=== PATIENT | female | born 1940 | race African-American/Black ===

== ENCOUNTER 2021-11-02 11:43 | Inpatient (IN) | payer OTHER, MEDICAID ==
[~2021-11-02] VITALS: Ht 144.8 cm; Wt 44.9 kg
[2021-11-02 12:34] LABS: BASOPHILS % 0.4 % (0.0-2.0); EOSINOPHILS % 0.8 % (0.0-5.0); HEMOGLOBIN. 12.3 g/dL (12.0-16.0); LYMPHOCYTES % 8.3 % (20.0-50.0); MEAN CORPUSCULAR HEMOGLOBIN 31.6 pg (28.0-32.0); MEAN PLATELET VOLUME 8.6 fl (7.4-10.4); MONOCYTES % 6.7 % (2.0-8.0); NEUTROPHILS % 83.8 % (40.0-76.0); PLATELET 294 x1000/uL (130-400); RED CELL DISTRIBUTION WIDTH 14.4 % (11.6-14.6)
[2021-11-02 12:41] LABS: CHLORIDE 108 mEq/L (98-107)
[2021-11-02 12:43] LABS: PROTHROMBIN TIME 10.5 sec (9.6-11.0)
[2021-11-02 12:52] LABS: C REACTIVE PROTEIN QUANT 6.9 mg/L (0.0-3.0); CREATINE KINASE 757 IU/L (26-192); ETHANOL BLOOD < 10 mg/dL
[2021-11-02 12:58] LABS: CLARITY URINE CLEAR (CLEAR); COLOR URINE YELLOW (YELLOW); KETONES URINE TRACE (NEGATIVE); LEUKOCYTE ESTERASE URINE NEGATIVE (NEGATIVE); NITRITE URINE NEGATIVE (NEGATIVE); OCCULT BLOOD URINE NEGATIVE (NEGATIVE); PROTEIN URINE 1+ (NEGATIVE); SPECIFIC GRAVITY URINE 1.022 (1.005-1.030)
[2021-11-02 13:08] LABS: *AMPHETAMINES SCREEN URINE NEGATIVE (NEGATIVE); *BARBITURATES SCREEN URINE NEGATIVE (NEGATIVE); *BENZODIAZEPINES SCREEN URINE NEGATIVE (NEGATIVE); *COCAINE SCREEN URINE NEGATIVE (NEGATIVE); CANNABINOID URINE SCREEN NEGATIVE (NEGATIVE); METHADONE URINE SCREEN NEGATIVE (NEGATIVE); OPIATES URINE SCREEN NEGATIVE (NEGATIVE); PHENCYCLIDINE URINE SCREEN NEGATIVE (NEGATIVE)
[2021-11-02] MEDS ORDERED: ASPIRIN 325MG EC TABLET PO NR (13:45)
[2021-11-02] MEDS ORDERED: ENOXAPARIN 30MG/0.3ML SYR SUBCUT NR (13:45)
[2021-11-02 14:52] LABS: BG BASE EXCESS 0.9 mmol/L (-2.0-2.0); BG CARBOXYHEMOGLOBIN 0.3 % (0.5-1.5); BG DEOXYHEMOGLOBIN 3.4 % (0.0-5.0); BG FRACTION INSPIRED OXYGEN 21; BG HCO3 ACT 24.6 mmol/L (22.0-26.0); BG METHEMOGLOBIN 0.1 % (0.0-1.5); BG OXYGEN SATURATION 96.6 % (92.0-98.5); BG OXYHEMOGLOBIN 96.2 % (94.0-97.0); BG PH 7.453 (7.350-7.450); BG PO2 88.5 mmHg (75.0-100.0); BG SAMPLE SITE RIGHT RADIAL; BG TOTAL HEMOGLOBIN 11.6 g/dL (12.0-18.0); BG VENT MODE ROOM AIR
[2021-11-02] MEDS: LOSARTAN POTASSIUM 25 MG TABLET PO SCH (14:53)
[2021-11-02] MEDS ORDERED: MAGNESIUM/ALUMINUM HYDROXIDE/SIMETHICONE 30ML UDC PO PRN (15:30)
[2021-11-02] MEDS ORDERED: HYDROCODONE/ACETAMINOPHEN 5/325MG TABLET PO PRN (15:30)
[2021-11-02] MEDS ORDERED: ACETAMINOPHEN 325MG TABLET PO PRN (15:30)
[2021-11-02] MEDS ORDERED: CLONIDINE 0.1MG TABLET PO PRN (15:30)
[2021-11-02] MEDS ORDERED: DOCUSATE SODIUM 100MG CAPSULE PO PRN (15:30)
[2021-11-02] MEDS ORDERED: ONDANSETRON HCL 4MG/2ML INJ IV PRN (15:30)
[2021-11-02 17:25] VITALS: BP 199/82
[2021-11-02 18:38] VITALS: BP 199/82
[2021-11-02 20:00] VITALS: BP 198/73
[2021-11-02] MEDS: AMLODIPINE 5MG TABLET PO SCH (20:16)
[2021-11-02] MEDS: SODIUM CHLORIDE 0.9% 1,000 ML IV SCH (20:22)
[2021-11-02 22:33] LABS: CREATINE KINASE 483 IU/L (26-192)
[2021-11-03] VITALS: BP 113/63
[2021-11-03 04:00] VITALS: BP 140/72
[2021-11-03] MEDS: OMEPRAZOLE 20MG CAPSULE EXTENDED RELEASE PO SCH (06:24)
[2021-11-03 07:54] LABS: BASOPHILS % 1.2 % (0.0-2.0); EOSINOPHILS % 3.4 % (0.0-5.0); HEMATOCRIT. 28.8 % (36.0-48.0); HEMOGLOBIN. 9.8 g/dL (12.0-16.0); LYMPHOCYTES % 16.3 % (20.0-50.0); MEAN CORPUSCULAR HEMOGLOBIN 32.2 pg (28.0-32.0); MEAN CORPUSCULAR VOLUME 94.9 fL (81.0-99.0); MEAN PLATELET VOLUME 8.5 fl (7.4-10.4); MONOCYTES % 10.7 % (2.0-8.0); NEUTROPHILS % 68.4 % (40.0-76.0); PLATELET 236 x1000/uL (130-400); RED BLOOD CELL COUNT 3.04 mill/uL (4.2-5.4); RED CELL DISTRIBUTION WIDTH 14.6 % (11.6-14.6)
[2021-11-03 08:00] VITALS: BP 161/71
[2021-11-03 08:14] LABS: CHLORIDE 113 mEq/L (98-107)
[2021-11-03 08:35] LABS: CREATINE KINASE 585 IU/L (26-192); HDL CHOLESTEROL 46 mg/dL (40-59); LDL CHOLESTEROL 48 mg/dL (5-100); PHOSPHORUS 2.6 mg/dL (2.5-4.9); T4 FREE 1.31 ng/dL (0.76-1.46); TOTAL IRON BINDING CAPACITY 178 ug/dL (250-450)
[2021-11-03] MEDS: AMLODIPINE 5MG TABLET PO SCH ×2 (09:15→21:00)
[2021-11-03] MEDS: LOSARTAN POTASSIUM 25 MG TABLET PO SCH (09:15)
[2021-11-03] MEDS: ASPIRIN 81MG TABLET PO SCH (09:15)
[2021-11-03 12:00] VITALS: BP 140/66
[2021-11-03] MEDS: SODIUM CHLORIDE 0.9% 1,000 ML IV SCH (13:00)
[2021-11-03] MEDS ORDERED: POTASSIUM CHLORIDE 20MEQ TABLET SR PO SCH (14:30)
[2021-11-03 16:00] VITALS: BP 147/66
[2021-11-03 17:46] LABS: BASOPHILS % 1.2 % (0.0-2.0); EOSINOPHILS % 3.4 % (0.0-5.0); HEMATOCRIT. 28.5 % (36.0-48.0); HEMOGLOBIN. 9.6 g/dL (12.0-16.0); LYMPHOCYTES % 19.8 % (20.0-50.0); MEAN CORPUSCULAR HEMOGLOBIN 32.8 pg (28.0-32.0); MEAN CORPUSCULAR VOLUME 97.3 fL (81.0-99.0); MEAN PLATELET VOLUME 8.7 fl (7.4-10.4); MONOCYTES % 9.6 % (2.0-8.0); PLATELET 206 x1000/uL (130-400); RED BLOOD CELL COUNT 2.93 mill/uL (4.2-5.4); RED CELL DISTRIBUTION WIDTH 14.3 % (11.6-14.6)
[2021-11-03 18:24] LABS: CREATINE KINASE 561 IU/L (26-192)
[2021-11-03 20:00] VITALS: BP 116/68
[2021-11-03] MEDS ORDERED: VERA120C3 PO (22:48)
[2021-11-03] MEDS ORDERED: ATOR10TA PO (22:48)
[2021-11-03] MEDS ORDERED: DORZ10DR9 EACHEYE (22:48)
[2021-11-03] MEDS ORDERED: BRIM.2 EACHEYE (22:48)
[2021-11-03] MEDS ORDERED: ASPI-986 PO (22:48)
[2021-11-03] MEDS ORDERED: XALAO EACHEYE (22:48)
[2021-11-03] MEDS ORDERED: TERA1CAP54 PO (22:48)
[2021-11-03] MEDS ORDERED: FERR325T6 PO (22:48)
[2021-11-03] MEDS ORDERED: ACET-2502 PO (22:48)
[2021-11-03] MEDS ORDERED: BENZ100C86 MT (22:48)
[2021-11-03] MEDS ORDERED: LISI20TA31 PO (22:48)
[2021-11-03] MEDS ORDERED: ALLO100T PO (22:48)
[2021-11-04] VITALS (7 sets, daily range): BP systolic 128–158; BP diastolic 56–73
[2021-11-04] MEDS: OMEPRAZOLE 20MG CAPSULE EXTENDED RELEASE PO SCH (06:30)
[2021-11-04] MEDS: SODIUM CHLORIDE 0.9% 1,000 ML IV SCH (06:31)
[2021-11-04 07:02] LABS: CHLORIDE 114 mEq/L (98-107)
[2021-11-04 07:10] LABS: BASOPHILS % 1.1 % (0.0-2.0); EOSINOPHILS % 4.3 % (0.0-5.0); HEMATOCRIT. 28.8 % (36.0-48.0); HEMOGLOBIN. 9.8 g/dL (12.0-16.0); LYMPHOCYTES % 20.8 % (20.0-50.0); MEAN CORPUSCULAR HEMOGLOBIN 32.5 pg (28.0-32.0); MEAN CORPUSCULAR VOLUME 95.5 fL (81.0-99.0); MEAN PLATELET VOLUME 8.7 fl (7.4-10.4); MONOCYTES % 10.5 % (2.0-8.0); NEUTROPHILS % 63.3 % (40.0-76.0); PLATELET 213 x1000/uL (130-400); RED BLOOD CELL COUNT 3.02 mill/uL (4.2-5.4); RED CELL DISTRIBUTION WIDTH 14.2 % (11.6-14.6)
[2021-11-04] MEDS: AMLODIPINE 5MG TABLET PO SCH ×2 (09:07→20:31)
[2021-11-04] MEDS: LOSARTAN POTASSIUM 25 MG TABLET PO SCH (09:07)
[2021-11-04] MEDS: ASPIRIN 81MG TABLET PO SCH (09:08)
[2021-11-04] MEDS ORDERED: MAGNESIUM OXIDE 400MG TABLET PO SCH (14:00)
[2021-11-04] MEDS ORDERED: NALOXONE HCL 0.4MG/ML VIAL IV PRN (18:30)
[2021-11-05] MEDS ORDERED: FAMOTIDINE 20MG TABLET PO SCH (09:00)
== END 2021-11-04 21:55 | disposition short-term general hospital (02) | DRG 74 ==
LOC: ER 12:29 → EDBEDREQTM 14:52 → EDBEDREQ 14:52 → 6WST 18:15
PROVIDERS: ADMIT Internal Medicine Nephrology; ATTEND Internal Medicine Nephrology
DX: G90.8 Other disorders of autonomic nervous system (principal); M62.82 Rhabdomyolysis; D64.9 Anemia, unspecified; E87.6 Hypokalemia; F03.90 Unspecified dementia, unspecified severity, without behavioral disturbance, psychotic disturbance, mood disturbance, and anxiety; Z60.2 Problems related to living alone; Z20.822 Contact with and (suspected) exposure to COVID-19; J44.9 Chronic obstructive pulmonary disease, unspecified; R26.89 Other abnormalities of gait and mobility; I10 Essential (primary) hypertension; I16.0 Hypertensive urgency; I45.10 Unspecified right bundle-branch block; Z86.73 Personal history of transient ischemic attack (TIA), and cerebral infarction without residual deficits; Z79.82 Long term (current) use of aspirin; Z82.49 Family history of ischemic heart disease and other diseases of the circulatory system
CPT/HCPCS: 36415; 36600; 70551; 71045; 80048; 80053; 80061; 80076; 80305; 80320; 81003; 82140; 82375; 82550; 82805; 83540; 83550; 83605; 83615; 83735; 83880; 84100; 84145; 84439; 84443; 84484; 85025; 86140; 87426; 93005; 93306; 93970; 97162; 97167; 97535; 99291; J1650; G0480

== ENCOUNTER 2022-01-30 15:20 | Inpatient (IN) | payer OTHER, MEDICAID ==
[~2022-01-30] VITALS: Ht 160 cm; Wt 56.7 kg
[~2022-01-30 15:20] MED LIST: ACET-2502 PO; ALLO100T PO; ASPI-986 PO; ATOR10TA PO; BENZ100C86 MT; BRIM.2 EACHEYE; DORZ10DR9 EACHEYE; FERR325T6 PO; LISI20TA31 PO; TERA1CAP54 PO; VERA120C3 PO; XALAO EACHEYE
[2022-01-30] MEDS ORDERED: SODIUM CHLORIDE 0.9% 1000ML BAG (SEPSIS BOLUS) IV ONE (16:00)
[2022-01-30] MEDS ORDERED: VANCOMYCIN 1G PREMIX 200 ML IV ONE (16:00)
[2022-01-30] MEDS ORDERED: PIPERACILLIN/TAZ 3.375G PREMIX 50 ML IV ONE (16:00)
[2022-01-30 19:31] LABS: CHLORIDE 97 mEq/L (98-107)
[2022-01-30 19:33] LABS: HEMATOCRIT. 30.6 % (36.0-48.0); HEMOGLOBIN. 10.1 g/dL (12.0-16.0); MEAN CORPUSCULAR HEMOGLOBIN 32.3 pg (28.0-32.0); MEAN CORPUSCULAR VOLUME 97.6 fL (81.0-99.0); MEAN PLATELET VOLUME 8.9 fl (7.4-10.4); PLATELET 474 x1000/uL (130-400); RED BLOOD CELL COUNT 3.13 mill/uL (4.2-5.4); RED CELL DISTRIBUTION WIDTH 14.2 % (11.6-14.6)
[2022-01-30] MEDS ORDERED: ALBUTEROL (0.083%) 2.5MG/3ML NEB HHN ONE (20:00)
[2022-01-30] MEDS ORDERED: SODIUM BICARBONATE 8.4% 1 MEQ/ML 50ML SYR IV ONE (20:00)
[2022-01-30] MEDS ORDERED: INSULIN REGULAR (HUMULIN R) 300UNITS/3ML VIAL IV ONE (20:00)
[2022-01-30] MEDS ORDERED: DEXTROSE 50% WATER 50ML SYRINGE IV ONE (20:00)
[2022-01-30] MEDS ORDERED: GUAIFENESIN 200MG/10ML SUGAR FREE UDC PO PRN (21:30)
[2022-01-30] MEDS ORDERED: DOCUSATE SODIUM 100MG CAPSULE PO PRN (21:30)
[2022-01-30] MEDS ORDERED: IPRATROPIUM/ALBUTEROL 0.5-3(2.5)MG/3ML NEB HHN PRN (21:30)
[2022-01-30] MEDS ORDERED: MAGNESIUM/ALUMINUM HYDROXIDE/SIMETHICONE 30ML UDC PO PRN (21:30)
[2022-01-30] MEDS ORDERED: ONDANSETRON HCL 4MG/2ML INJ IV PRN (21:30)
[2022-01-30] MEDS ORDERED: CLONIDINE 0.1MG TABLET PO PRN (21:30)
[2022-01-30] MEDS ORDERED: ACETAMINOPHEN 650MG SUPP PR PRN ×2 (21:30)
[2022-01-30] MEDS ORDERED: SODIUM BICARBONATE 8.4% 1 MEQ/ML 50ML SYR IV NR (21:45)
[2022-01-30] MEDS ORDERED: PIPERACILLIN/TAZ 3.375G PREMIX 50 ML IV NR (21:45)
[2022-01-30] MEDS ORDERED: DEXTROSE 50% WATER 50ML SYRINGE IV NR (21:45)
[2022-01-30] MEDS ORDERED: VANCOMYCIN 1G PREMIX 200 ML IV NR (21:45)
[2022-01-30] MEDS ORDERED: INSULIN REGULAR (HUMULIN R) 300UNITS/3ML VIAL IV NR (21:45)
[2022-01-30] MEDS ORDERED: VANCOMYCIN 500MG PREMIX 100 ML IV NR (23:00)
[2022-01-31] VITALS (45 sets, daily range): BP systolic 70–202; BP diastolic 25–159
[2022-01-31] MEDS: SODIUM CHLORIDE 0.9% 1,000 ML IV SCH ×3 (00:45→15:48)
[2022-01-31] MEDS ORDERED: NOREPINEPHRINE 8MG/250ML PMX 250 ML IV PRN (00:45)
[2022-01-31 01:07] LABS: PLATELET ESTIMATE INCREASED
[2022-01-31 05:59] LABS: HEMATOCRIT. 28.1 % (36.0-48.0); HEMOGLOBIN. 9.2 g/dL (12.0-16.0); MEAN CORPUSCULAR HEMOGLOBIN 31.9 pg (28.0-32.0); MEAN CORPUSCULAR VOLUME 97.3 fL (81.0-99.0); MEAN PLATELET VOLUME 8.4 fl (7.4-10.4); PLATELET 436 x1000/uL (130-400); RED BLOOD CELL COUNT 2.89 mill/uL (4.2-5.4); RED CELL DISTRIBUTION WIDTH 13.9 % (11.6-14.6)
[2022-01-31 06:07] LABS: CHLORIDE 104 mEq/L (98-107)
[2022-01-31 06:21] LABS: CREATINE KINASE 289 IU/L (26-192); HDL CHOLESTEROL 14 mg/dL (40-59); LDL CHOLESTEROL 33 mg/dL (5-100)
[2022-01-31] MEDS ORDERED: PIPERACILLIN/TAZOBACTAM 3.375 G in DEXTROSE 5% WATER 50 ML IV SCH ×4 (09:00)
[2022-01-31] MEDS ORDERED: TETANUS, DIPHTHERIA, PERTUSSIS VAC/PF 0.5ML (>10YR OLD) IM ONE (09:00)
[2022-01-31] MEDS ORDERED: DEXTROSE 50% WATER 50ML SYRINGE IV PRN (09:45)
[2022-01-31 10:51] LABS: PLATELET ESTIMATE SLIGHTLY INCREASED
[2022-01-31] MEDS: BLOOD SUGAR DIAGNOSTIC STRIP TEST SCH ×2 (11:23→16:30)
[2022-01-31] MEDS: MEROPENEM 500 MG in SODIUM CHLORIDE 0.9% 50 ML IV SCH ×2 (11:38→21:28)
[2022-01-31] MEDS: ENOXAPARIN 30MG/0.3ML SYR SUBCUT SCH (11:39)
[2022-01-31] MEDS: INSULIN LISPRO 100 UNITS/ML SUBCUT SCH ×2 (11:40→19:33)
[2022-01-31 12:52] LABS: CLARITY URINE CLOUDY (CLEAR); COLOR URINE DARK YELLOW (YELLOW); KETONES URINE NEGATIVE (NEGATIVE); LEUKOCYTE ESTERASE URINE 1+ (NEGATIVE); NITRITE URINE NEGATIVE (NEGATIVE); OCCULT BLOOD URINE 1+ (NEGATIVE); PROTEIN URINE TRACE (NEGATIVE)
[2022-01-31] MEDS: NOREPINEPHRINE 8 MG in DEXTROSE 5% WATER 250 ML IV PRN (13:11)
[2022-01-31] MEDS: MORPHINE SULFATE 2 MG/ML CPJ (NOT FOR IM USE) IV PRN (14:00)
[2022-01-31] MEDS ORDERED: NALOXONE HCL 0.4MG/ML VIAL IV PRN (16:00)
[2022-01-31 16:19] LABS: CREATINE KINASE 445 IU/L (26-192)
[2022-02-01] VITALS (77 sets, daily range): BP systolic 75–146; BP diastolic 36–100
[2022-02-01] MEDS: INSULIN LISPRO 100 UNITS/ML SUBCUT SCH ×5 (00:43→23:43)
[2022-02-01] MEDS: BLOOD SUGAR DIAGNOSTIC STRIP TEST SCH ×5 (00:44→23:49)
[2022-02-01] MEDS: SODIUM CHLORIDE 0.9% 1,000 ML IV SCH ×3 (00:44→21:09)
[2022-02-01] MEDS: NOREPINEPHRINE 8 MG in DEXTROSE 5% WATER 250 ML IV PRN ×2 (04:57→18:35)
[2022-02-01 05:30] LABS: HEMATOCRIT. 24.8 % (36.0-48.0); HEMOGLOBIN. 8.2 g/dL (12.0-16.0); MEAN CORPUSCULAR HEMOGLOBIN 31.9 pg (28.0-32.0); MEAN CORPUSCULAR VOLUME 96.7 fL (81.0-99.0); MEAN PLATELET VOLUME 8.7 fl (7.4-10.4); PLATELET 393 x1000/uL (130-400); RED BLOOD CELL COUNT 2.57 mill/uL (4.2-5.4); RED CELL DISTRIBUTION WIDTH 14.2 % (11.6-14.6)
[2022-02-01 06:33] LABS: PLATELET ESTIMATE NORMAL
[2022-02-01] MEDS: ENOXAPARIN 30MG/0.3ML SYR SUBCUT SCH (09:07)
[2022-02-01] MEDS: MEROPENEM 500 MG in SODIUM CHLORIDE 0.9% 50 ML IV SCH ×2 (09:07→21:00)
[2022-02-01] MEDS: MORPHINE SULFATE 2 MG/ML CPJ (NOT FOR IM USE) IV PRN ×2 (09:11→17:20)
[2022-02-01] MEDS ORDERED: VANCOMYCIN 500MG PREMIX 100 ML IV SCH (15:00)
[2022-02-02] VITALS (55 sets, daily range): BP systolic 104–163; BP diastolic 19–121
[2022-02-02] MEDS: MORPHINE SULFATE 2 MG/ML CPJ (NOT FOR IM USE) IV PRN ×3 (03:34→11:47)
[2022-02-02 04:36] LABS: HEMATOCRIT. 24.2 % (36.0-48.0); MEAN CORPUSCULAR HEMOGLOBIN 32.1 pg (28.0-32.0); MEAN CORPUSCULAR VOLUME 96.8 fL (81.0-99.0); MEAN PLATELET VOLUME 8.1 fl (7.4-10.4); PLATELET 354 x1000/uL (130-400); RED CELL DISTRIBUTION WIDTH 14.2 % (11.6-14.6)
[2022-02-02] MEDS: BLOOD SUGAR DIAGNOSTIC STRIP TEST SCH ×3 (05:31→17:09)
[2022-02-02] MEDS: INSULIN LISPRO 100 UNITS/ML SUBCUT SCH ×3 (05:31→18:00)
[2022-02-02 07:03] LABS: PLATELET ESTIMATE NORMAL
[2022-02-02] MEDS: SODIUM CHLORIDE 0.9% 1,000 ML IV SCH ×2 (07:45→17:09)
[2022-02-02] MEDS: CITRIC ACID/SODIUM CITRATE SOLN 15ML UDC PO SCH ×3 (08:38→17:09)
[2022-02-02] MEDS: ENOXAPARIN 30MG/0.3ML SYR SUBCUT SCH (08:42)
[2022-02-02] MEDS: MEROPENEM 500 MG in SODIUM CHLORIDE 0.9% 50 ML IV SCH (08:42)
[2022-02-02] MEDS ORDERED: VANCOMYCIN 750MG PMX (XELLIA) 150 ML IV SCH (12:00)
[2022-02-02] MEDS ORDERED: BRIMONIDINE 0.2% OPHTH DROPS 5ML BOTHEYE SCH (14:00)
[2022-02-02] MEDS ORDERED: MEROPENEM 1000MG in NORMAL SALINE 100ML IV SCH (18:00)
[2022-02-02] MEDS ORDERED: TIMOLOL MALEATE 0.25% OPHTH DROPS 5ML EACHEYE SCH (21:00)
[2022-02-02] MEDS ORDERED: LATANOPROST 0.005% OPHTH DROPS 2.5ML BOTHEYE SCH (21:00)
== END 2022-02-02 21:16 | disposition short-term general hospital (02) | DRG 853 ==
LOC: ER 15:20 → MICUSO 20:26 → EDBEDREQ 20:29 → EDBEDREQTM 20:29 → MICUSO 01-31 09:40 → 5EST 02-02 14:22
PROVIDERS: ADMIT Family Medicine Adult Medicine; ATTEND Family Medicine Adult Medicine
PROC: 0KBN0ZZ Excision of Right Hip Muscle, Open Approach (ICD-10-PCS; principal; 2022-01-31)
PROC: 05HY33Z Insertion of Infusion Device into Upper Vein, Percutaneous Approach (ICD-10-PCS; 2022-01-31)
DX: A41.59 Other Gram-negative sepsis (principal); E43 Unspecified severe protein-calorie malnutrition; G92.8 Other toxic encephalopathy; R65.21 Severe sepsis with septic shock; L89.893 Pressure ulcer of other site, stage 3; L89.154 Pressure ulcer of sacral region, stage 4; E87.1 Hypo-osmolality and hyponatremia; N17.9 Acute kidney failure, unspecified; E87.2 Acidosis; N39.0 Urinary tract infection, site not specified; I13.0 Hypertensive heart and chronic kidney disease with heart failure and stage 1 through stage 4 chronic kidney disease, or unspecified chronic kidney disease; L89.219 Pressure ulcer of right hip, unspecified stage; Z20.822 Contact with and (suspected) exposure to COVID-19; D63.1 Anemia in chronic kidney disease; D25.9 Leiomyoma of uterus, unspecified; E86.0 Dehydration; E78.5 Hyperlipidemia, unspecified; E87.5 Hyperkalemia; I50.9 Heart failure, unspecified; N18.9 Chronic kidney disease, unspecified; I25.10 Atherosclerotic heart disease of native coronary artery without angina pectoris; E11.22 Type 2 diabetes mellitus with diabetic chronic kidney disease; E11.65 Type 2 diabetes mellitus with hyperglycemia; J44.9 Chronic obstructive pulmonary disease, unspecified; F03.90 Unspecified dementia, unspecified severity, without behavioral disturbance, psychotic disturbance, mood disturbance, and anxiety; R79.89 Other specified abnormal findings of blood chemistry; R77.8 Other specified abnormalities of plasma proteins; Z79.899 Other long term (current) drug therapy; Z68.22 Body mass index [BMI] 22.0-22.9, adult; Z82.49 Family history of ischemic heart disease and other diseases of the circulatory system; Z86.73 Personal history of transient ischemic attack (TIA), and cerebral infarction without residual deficits
CPT/HCPCS: 36415; 36573; 71045; 72192; 76770; 80048; 80053; 80061; 80202; 81003; 82140; 82550; 82962; 83036; 83605; 83735; 83880; 84145; 84443; 84484; 85025; 85651; 86140; 87077; 87186; 87426; 90715; 93005; 94640; 94644; 97162; 97165; 97530; 99291; A6261; C1725; J1650; J1815; J2185; J2270; J2543; J3370; J3490; J7030; J7060; A4315